=== PATIENT | female | born 1940 | race Caucasian/White ===

== ENCOUNTER 2023-12-21 12:06 | Inpatient (IN) | payer MEDICARE ==
[~2023-12-21] VITALS: Ht 152.4 cm; Wt 48.3 kg
[2023-12-21 13:05] LABS: CALCIUM, SERUM 9.7 mg/dL (8.5-10.1); CARBON DIOXIDE 25 mmol/L (21-32); CHLORIDE 104 mmol/L (98-107); CREATININE 0.7 mg/dL (0.6-1.3); GLUCOSE 106 mg/dL (74-106); POTASSIUM 3.9 mmol/L (3.5-5.1); SODIUM SERUM 140 mmol/L (136-145); UREA NITROGEN, BLOOD 17 mg/dL (7-18)
[2023-12-21 13:23] LABS: BASOPHILS % (AUTO) 0.6 % (0.0-2.0); EOSINOPHILS % (AUTO) 0.2 % (0.0-6.0); HEMATOCRIT 44 % (33-45); HEMOGLOBIN 15.1 g/dL (11.5-14.8); LYMPHOCYTES # (AUTO) 0.9 K/uL (0.8-4.8); MEAN CORPUSCULAR HEMOGLOBIN 33 PG (26.0-33.0); MEAN CORPUSCULAR HGB CONC 34 g/dl (31.0-36.0); MEAN CORPUSCULAR VOLUME 95 fL (82-100); MONOCYTES # (AUTO) 0.4 K/uL (0.1-1.30); MONOCYTES % (AUTO) 5.2 % (2.0-12.0); NEUTROPHILS # (AUTO) 6.3 K/uL (1.8-8.9); PLATELET COUNT (AUTO) 230 K/uL (150-450); RED BLOOD CELL COUNT(AUTO) 4.62 MIL/uL (4.0-5.2); RED CELL DISTRIBUTION WIDTH 13.1 % (11.5-15.0); WHITE BLOOD COUNT (AUTO) 7.7 K/uL (4.3-11.0)
[2023-12-21 14:00] VITALS: O2SAT 98
[2023-12-21] MEDS ORDERED: ACETAMINOPHEN ES 500 MG TABLET ONE (14:23)
[2023-12-21] MEDS: ACETAMINOPHEN ES 500 MG TABLET PO ONE (14:28)
[2023-12-21] MEDS ORDERED: HEPARIN INFUSION/D5W 500 ML IV PRN (15:00)
[2023-12-21] MEDS ORDERED: ONDANSETRON HCL/PF 4 MG/2 ML VIAL IVP PRN (15:00)
[2023-12-21] MEDS ORDERED: MAGNESIUM HYDROXIDE 30 ML UDC PO PRN (15:00)
[2023-12-21] MEDS ORDERED: Z GUARD REMEDY 4 OZ OINT TP PRN (15:00)
[2023-12-21 15:07] LABS: INR 0.97 (0.91-1.10); PARTIAL THROMBOPLASTIN TIME 25.7 SEC (24.3-34.3); PROTHROMBIN TIME 10.3 SECS (9.2-11.1)
[2023-12-21] MEDS ORDERED: NIFE30TA91 PO (15:22)
[2023-12-21] MEDS ORDERED: APIX5TAB PO (15:22)
[2023-12-21] MEDS ORDERED: AMYL1CAP54 PO (15:22)
[2023-12-21] MEDS ORDERED: FLEC50TA3 PO (15:22)
[2023-12-21] MEDS ORDERED: NEBI10TA2 PO (15:22)
[2023-12-21] MEDS ORDERED: HYDR100T27 PO (15:22)
[2023-12-21] MEDS ORDERED: TRAM50TA2 PO (15:22)
[2023-12-21] MEDS ORDERED: OLME40TA18 PO (15:22)
[2023-12-21] MEDS: ASPIRIN 325 MG TABLET PO SCH (15:30)
[2023-12-21] MEDS ORDERED: MORPHINE SULFATE INJ 2 MG/ML DISP.SYRIN IV PRN (15:30)
[2023-12-21] MEDS ORDERED: HEPARIN SODIUM,PORCINE/PF 50 UNIT/5 ML DISP.SYRIN IV ONE (17:00)
[2023-12-21] MEDS: NITROGLYCERIN PACKET 1 GM PACKET TOP SCH (17:26)
[2023-12-21] MEDS ORDERED: HEPARIN SODIUM, PORCINE 5000 UNITS/1 ML VIAL IV ONE (17:30)
[2023-12-21] MEDS: HEPARIN INFUSION/D5W 500 ML IV PRN (18:15)
[2023-12-21 20:00] VITALS: BP 107/66; TEMP 98.6; O2SAT 95
[2023-12-21] MEDS: ATORVASTATIN 40 MG TABLET PO SCH (22:37)
[2023-12-21] MEDS: ZOLPIDEM TARTRATE 5 MG TABLET PO PRN (22:37)
[2023-12-21] MEDS: METOPROLOL TARTRATE 25 MG TABLET PO SCH (22:48)
[2023-12-21] MEDS: TEMAZEPAM 15 MG CAPSULE PO PRN (23:55)
[2023-12-22 00:04] VITALS: BP 127/74; TEMP 99; O2SAT 97
[2023-12-22 03:58] VITALS: BP 115/65; TEMP 98.8; O2SAT 96
[2023-12-22] MEDS: PANTOPRAZOLE 40 MG TABLET.DR PO SCH (07:22)
[2023-12-22 07:30] VITALS: BP 134/76; TEMP 98.2; O2SAT 96
[2023-12-22] MEDS ORDERED: IV SET PRIMARY PUMP SET 1 EA INFUS.SET MC ONE (07:38)
[2023-12-22] MEDS ORDERED: IV NS 0.9% 500 ML IV ONE (07:38)
[2023-12-22] MEDS ORDERED: LIDOCAINE HCL/MPF 1% 30 ML VIAL IJ ONE (07:53)
[2023-12-22] MEDS ORDERED: IODIXANOL 150 ML IV ONE (07:53)
[2023-12-22] MEDS ORDERED: NITROGLYCERIN IN 5 % DEXTROSE 250 ML IV ONE (07:56)
[2023-12-22 08:05] LABS: BASOPHILS % (AUTO) 0.9 % (0.0-2.0); EOSINOPHILS % (AUTO) 0.8 % (0.0-6.0); HEMATOCRIT 39 % (33-45); HEMOGLOBIN 13.2 g/dL (11.5-14.8); LYMPHOCYTES # (AUTO) 0.9 K/uL (0.8-4.8); LYMPHOCYTES % (AUTO) 16.9 % (20.0-44.0); MEAN CORPUSCULAR HEMOGLOBIN 32 PG (26.0-33.0); MEAN CORPUSCULAR HGB CONC 34 g/dl (31.0-36.0); MEAN CORPUSCULAR VOLUME 96 fL (82-100); MONOCYTES # (AUTO) 0.4 K/uL (0.1-1.30); MONOCYTES % (AUTO) 7.3 % (2.0-12.0); NEUTROPHILS # (AUTO) 3.9 K/uL (1.8-8.9); NEUTROPHILS % (AUTO) 74.1 % (43.0-81.0); PLATELET COUNT (AUTO) 185 K/uL (150-450); RED BLOOD CELL COUNT(AUTO) 4.09 MIL/uL (4.0-5.2); RED CELL DISTRIBUTION WIDTH 13.6 % (11.5-15.0); WHITE BLOOD COUNT (AUTO) 5.2 K/uL (4.3-11.0)
[2023-12-22 08:18] LABS: CALCIUM, SERUM 8.9 mg/dL (8.5-10.1); CARBON DIOXIDE 26 mmol/L (21-32); CHLORIDE 109 mmol/L (98-107); CREATININE 0.6 mg/dL (0.6-1.3); GLUCOSE 90 mg/dL (74-106); MAGNESIUM 2.2 mg/dL (1.8-2.4); PHOSPHORUS 3.1 mg/dL (2.5-4.9); POTASSIUM 3.7 mmol/L (3.5-5.1); SODIUM SERUM 142 mmol/L (136-145); UREA NITROGEN, BLOOD 9 mg/dL (7-18)
[2023-12-22] MEDS ORDERED: FENTANYL PF 100MCG/2ML AMPUL ONE (08:28)
[2023-12-22] MEDS ORDERED: MIDAZOLAM HCL 2 MG/2ML VIAL ONE (08:28)
[2023-12-22] MEDS: NIFEdipine XL (30MG) 30 MG TAB PO SCH (08:47)
[2023-12-22 08:57] LABS: THYROID STIMULATING HORMONE 6.62 uIU/mL (0.358-3.74)
[2023-12-22] MEDS: ACETAMINOPHEN 325 MG TABLET PO PRN (09:52)
[2023-12-22 16:00] VITALS: BP 119/74; TEMP 97.7; O2SAT 95
[2023-12-22 20:00] VITALS: BP 98/59; TEMP 97.7; O2SAT 97
[2023-12-23] VITALS: BP 110/72; TEMP 97.9; O2SAT 98
[2023-12-23 04:00] VITALS: BP 119/72; TEMP 97.9; O2SAT 98
[2023-12-23 08:41] VITALS: BP 124/75
[2023-12-23] MEDS: APIXABAN 5 MG TABLET PO SCH (08:42)
[2023-12-23] MEDS ORDERED: FLECAINIDE ACETATE 50 MG TABLET PO SCH (09:00)
[2023-12-23] MEDS ORDERED: EZET10TA16 PO (11:09)
[2023-12-23] MEDS: FLECAINIDE ACETATE (100 MG) 100 MG TABLET PO SCH (12:02)
[2023-12-23] MEDS ORDERED: NEBI10TA2 PO (12:34)
== END 2023-12-23 14:42 | disposition home or self-care (01) | DRG 281 ==
LOC: ER 13:06 → TELE 14:57 → MED 12-23 10:34
PROVIDERS: ADMIT Nurse Practitioner Family; ATTEND Nurse Practitioner Family
PROC: 4A023N7 Measurement of Cardiac Sampling and Pressure, Left Heart, Percutaneous Approach (ICD-10-PCS; principal; 2023-12-22)
PROC: B211YZZ Fluoroscopy of Multiple Coronary Arteries using Other Contrast (ICD-10-PCS; 2023-12-22)
DX: I21.4 Non-ST elevation (NSTEMI) myocardial infarction (principal); D83.9 Common variable immunodeficiency, unspecified; I48.91 Unspecified atrial fibrillation; Z79.01 Long term (current) use of anticoagulants; I48.0 Paroxysmal atrial fibrillation; Z88.2 Allergy status to sulfonamides; Z91.011 Allergy to milk products; E78.5 Hyperlipidemia, unspecified; E03.8 Other specified hypothyroidism; Z79.899 Other long term (current) drug therapy
CPT/HCPCS: 36415; 70450-TC; 71045-TC; 80048-TC; 80061-TC; 83735-TC; 84100-TC; 84439-TC; 84443-TC; 84484-TC; 85025-TC; 85610-TC; 85730-TC; 87081-TC; 93307-TC; A4223; G0378; J1644; J2250; J3010; J3490; J7040; Q9967